=== PATIENT | male | born 1995 | race Caucasian/White ===

== ENCOUNTER 2018-09-30 08:22 | Emergency (ER) | payer OTHER ==
[~2018-09-30] VITALS: Ht 190.5 cm; Wt 129.2 kg
[2018-09-30] MEDS ORDERED: ibuprofen tablet 400 MG TABLET PO ONE (09:10)
[2018-09-30 10:02] VITALS: BP_DIAS 73
[2018-09-30 10:03] VITALS: BP_SYST 124
== END 2018-09-30 10:06 | disposition home or self-care (01) ==
LOC: ER 08:23
DX: S53.402A Unspecified sprain of left elbow, initial encounter (principal); F12.90 Cannabis use, unspecified, uncomplicated; V00.131A Fall from skateboard, initial encounter; Y93.51 Activity, roller skating (inline) and skateboarding; Y92.89 Other specified places as the place of occurrence of the external cause; Y99.8 Other external cause status
CPT/HCPCS: 29105; 73080; 99284